=== PATIENT | female | born 1955 | race Caucasian/White ===

== ENCOUNTER → 2020-12-13 09:01 | Outpatient (CLI) | payer MEDICARE, MEDICAID, SELFPAY ==
--- NOTE | 2020-12-13 | FLU_PTH ---
PATIENT: CARLOS FOREMAN LOC: [facility] U#:[id number] AGE/SX: 69/F ROOM: RE12/13/[address]: Dr. Val Merlos MD : 1955 BED: DIS: SPEC #: [id number] RECD: 12/13/20 16:59 STATUS: SULY MADDOXJailene #: [id number] RAGINI: 12/13/20 00:[address]: Val Merlos DEPT: CYTOLOGY RECD BY: Bradford Villatoro ENTERED: 12/14/20 09:38 SP TYPE: Fluid OTHR DR: Dr. Case Johnson MD Tissues: A - Thyroid gland, NOS B - Thyroid gland, NOS Procedures: Special Stain Group II Surgery Specimen Level IV Cytospin Fluid HEADER OPERATION: Fine needle aspiration thyroid PRE-OP DIAGNOSIS: Left thyroid nodule TISSUE SUBMITTED: A ? FNA left thyroid nodule fluid, B - FNA left thyroid nodule x8 slides DIAGNOSIS CYTOLOGY A. Fine needle aspiration, left thyroid nodule fluid (cytospin and cell block): Negative for malignant cells. See Comment. B. Fine needle aspiration, left thyroid nodule (smears): Adequate for evaluation. Atypical follicular cells of undetermined significance. AM:fely 12/15/2020 COMMENT A. The specimen contains rare benign follicular cells and macrophages and blood. Case has been reviewed in consultation with Dr. Almonte who concurs with the above diagnosis. IDC:[facility]J CYTOLOGY STUDY Slides are reviewed. CYTOLOGY GROSS A - Received is 35 ml of brown cloudy fluid labeled with the patient's name and and designated per the requisition as left thyroid nodule. Submitted for cytology preparation including cell block. B - Received are 8 smears labeled with the patient's name and designated per the requisition as left thyroid nodule. Submitted for staining. / fely 12/14/2020 TC:? CPT: 84774, 89030, 03140 ADDENDUM ADDENDUM ADDENDUM ADDENDUM ADDENDUM ADDENDUM ADDENDUM ADDENDUM ADDENDUM ADDENDUM 02/06/2021 10:29 ADDENDUM 02/06/2021 10:29 ADDENDUM 02/06/2021 10:29 ADDENDUM 02/06/2021 10:29 ADDENDUM 02/06/2021 10:29 This addendum is added to incorporate an outside pathology consultation report. The case was examined at [facility] (#[id number]) and the following diagnosis was rendered. Left thyroid nodule, fine needle aspiration: Atypia of undetermined significance. Please see complete above mentioned consultation report in EMR
== END ==
PROVIDERS: PCP Family Medicine; Visit Provider Surgery
DX: E04.1 Nontoxic single thyroid nodule (principal)
CPT/HCPCS: 88108; 88305; 88313

== ENCOUNTER → 2021-03-21 15:48 | Outpatient (CLI) | payer MEDICARE, MEDICAID, SELFPAY ==
[2021-03-21 16:08] LABS: D-Dimer Quantitative (DVT/PE) < 0.27 FEU/ug/m (0.27-0.49)
== END ==
PROVIDERS: PCP Family Medicine
DX: R06.02 Shortness of breath (principal)
CPT/HCPCS: 85379